=== PATIENT | male | born 2000 | race Caucasian/White ===

== ENCOUNTER 2019-05-11 07:20 | Emergency (ER) | payer SELFPAY ==
[2019-05-11] MEDS: HYDROCODONE/APAP (5/325) TAB PO (07:57)
[2019-05-11] MEDS: DIPHTH/TET/ACEL PERTUSS (ADULT) 0.5 ML VIAL IM* (09:04)
== END 2019-05-11 09:11 | disposition home or self-care (01) ==
LOC: FTE 07:20
DX: S61.412A Laceration without foreign body of left hand, initial encounter (principal); F17.210 Nicotine dependence, cigarettes, uncomplicated; X58.XXXA Exposure to other specified factors, initial encounter; Y92.69 Other specified industrial and construction area as the place of occurrence of the external cause; Z23 Encounter for immunization
CPT/HCPCS: 12001; 90471; 90715; 99283-25